=== PATIENT | female | born 1945 | race Caucasian/White ===

== ENCOUNTER 2024-04-14 09:45 | Outpatient (RCR) | payer OTHER, SELFPAY ==
--- NOTE | 2024-03-09 16:00 | PT.OIE ---
Current Diagnoses Lymphedema, not elsewhere classified (03/09/24) Localized edema (03/09/24) Visit Care Team Role Provider Type Dana Carter MD Attending Provider Non-Staff Family Provider Primary Care Provider Referring Provider Specialty: Medical Address: [address] [place] [address], [phone] Email: Physical Therapy Initial Evaluation PT-OP-A Visit Information Start: 03/08/24 16:53 Freq: Status: Active Protocol: Document 03/09/24 12:59 SAK (Rec: 03/09/24 14:32 [facility] [id number]) Out-Patient Physical Therapy Visit Information Visit Information Visit Type Initial Evaluation Visit Start Time 12:59 Visit Stop Time 14:25 Visit Number 1 Evaluation Information Evaluation Date 03/09/24 Precautions Precautions DM, osteopenia PT-OP-B Current Condition Start: 03/08/24 16:53 Freq: Status: Active Protocol: Document 03/09/24 12:59 SAK (Rec: 03/09/24 14:32 [facility] [id number]) Current Condition History of Current Condition Onset Date June 2023 Current Complaints left LE edema History of Current Condition 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 Now diabetic as result and has had swelling in left foot since the surgery and looks black and blue when dependent. At night swelling goes down most of the way and color is better. tried compression socks, didn' t work well, knee swelled, got diabetic socks but don't help with swelling. Not sure if has swelling in leg above foot and ankle Prior Treatments and Tests ultrasound; negative for clot Future Testing and Treatments Planned has appointment tomorrow with neurologist due to tremors, then with GP on ( Leila Carter) for follow up. Treatment Goals Patient/Caregiver Goals Decrease lymphedema and be able to self manage. Prior Functional Status Baseline Function- ADL's Independent Baseline Function- Mobility Independent PT-OP-C Subjective Start: 03/08/24 16:53 Freq: Status: Active Protocol: Document 03/09/24 12:59 SAK (Rec: 03/09/24 15:57 SAK [id number]) Patient Questionnaires Lymphedema Life Impact Score Lymphedema Score 12 OP-PT Pain Assessment Pain Assessment Grid Paper Pain Assessment Grid Completed Yes PT-OP-G Mobility & Gait Start: 03/08/24 16:53 Freq: Status: Active Protocol: Document 03/09/24 12:59 [facility] (Rec: 03/09/24 15:57 [facility] [id number]) OP Gait Assessment Gait Gait Assistance Required: Independent PT-OP-J Posture/Palpation/Skin Start: 03/08/24 16:53 Freq: Status: Active Protocol: Document 03/09/24 12:59 SAK (Rec: 03/09/24 15:57 [facility] [id number]) Palpation Assessment Location left LE Palpation Findings Edema Palpation Details fullness noted in left LE toes midfoot to proximal thigh PT-OP-K Range of Motion Start: 03/08/24 16:53 Freq: Status: Active Protocol: Document 03/09/24 12:59 [facility] (Rec: 03/09/24 15:57 [facility] [id number]) Hip Goniometric Range of Motion Hip shellie Hip ROM WFL Yes Knee Goniometric Range of Motion Knee shellie Knee ROM WFL Yes Ankle and Foot Goniometric Range of Motion Ankle and Foot shellie Ankle/Foot ROM WFL Yes PT-OP-N Lymphedema Start: 03/08/24 16:53 Freq: Status: Active Protocol: Document 03/09/24 12:59 [facility] (Rec: 03/09/24 14:32 [facility] [id number]) Lymphedema Measurements Lower Extremity Circumference Measurements Left Affected MT Heads 21 cm Mid-foot 21.3 cm Medial Malleolus 22.6 cm 10 cm From Medial Malleolus 26.2 cm 20 cm From Medial Malleolus 32.3 cm 30 cm From Medial Malleolus 30.6 cm 40 cm From Medial Malleolus 34.4 cm 50 cm From Medial Malleolus 40.8 cm 60 cm From Medial Malleolus 44.2 cm 70 cm From Medial Malleolus 50.5 cm Knee Joint 32.9 cm Right Unaffected MT Heads 20.8 cm Mid-foot 20.4 cm Medial Malleolus 22.6 cm 10 cm From Medial Malleolus 24.2 cm 20 cm From Medial Malleolus 30.7 cm 30 cm From Medial Malleolus 30.9 cm 40 cm From Medial Malleolus 33 cm 50 cm From Medial Malleolus 39.8 cm 60 cm From Medial Malleolus 43.8 cm 70 cm From Medial Malleolus 48 cm Knee Joint 32.7 cm PT-OP-Q Treatments Start: 03/08/24 16:53 Freq: Status: Active Protocol: Document 03/09/24 12:59 [facility] (Rec: 03/09/24 16:00 [facility] [id number]) Lymphedema Treatment Manual Lymphatic Drainage Duration 20 Comments with patient education verbally and with video Lymphedema Wrapping Other assisted patient in donning thigh high compression stocking left LE size II Juzo open toe with silicon at top Sequential Lymphedema Exercises Location instrsucted and issued handout Compression Garment Assessment Compression Garment Assessment Details loaner stocking Patient Education Lymphedema Pathology instructed Lymphedema Precautions instructed and issued handout Compression Garments discussed and issued loaner garment Self Manual Lymphatic Drainage instructed Sequential Lymphedema Exercises instructed PT-OP-T Assessment and Plan Start: 03/08/24 16:53 Freq: Status: Active Protocol: Document 03/09/24 12:59 [facility] (Rec: 03/09/24 14:32 [facility] [id number]) Physical Therapy Assessment Impairments Impairments Edema Goals 2 Impairment Lymphedema Life impact scale 12% Machine Greaser Goal (LTG) Decrease lymphedema life impact scale to no greater than 5/10 as measure of improved patient knowledge and function LTG Duration 05/10/24 1 Impairment lymphedema left LE Short Term Goal (STG) Patient to be instructed in all aspects of lymphedema care including skin care, elevation, manual lymphatic drainage, compression, and lymphedema exercises STG Duration 04/09/24 Machine Greaser Goal (LTG) Decrease lymphedema to a stable level (no increase or decrease in circumferential measurements more than 1 cm over the course of 1 week with patient to be independent and compliant with all aspects of self care for lymphedema including obtaining appropriate compression garment with demonstrated ability to don and doff. LTG Duration 05/10/24 Assessment Summary Assessment Patient presents to PT with lymphedema left LE foot to thigh stage I s/p extensive abdominal surgery. Patient will benefit from PT for lymphedema management to include skin care, elevation, manual lymphatic drainage, compression, and exercise with patient instruction for self management. Patient was issued a loaner Juzo size II 20-30 mm Hg thigh high stocking for trial due to good fit. PT initiated patient education for all aspects of lymphedema management. POC was discussed and she was in agreement. Physical Therapy Plan Frequency and Duration Frequency of Treatment 20 visits Duration of treatment (weeks) 12 Plan of Care Start Date 03/09/24 Plan of Care End Date 06/09/24 Therapeutic Interventions Therapeutic Interventions Lymphedema Management,Manual Therapy,Patient/Caregiver Education,Self-Care/Home Management,Taping,Therapeutic Exercises Modalities Vasopneumatic Devices Next Visit Focus/Plan Next Note Type Treatment Note Next Visit Plan Evaluate response to trial compression stocking, provide MLD with patient education, review lymphedema exercises, further discussion of compression garment options.
--- NOTE | 2024-03-09 16:00 | PT.OPPOC ---
Physical, Occupational & Speech Therapy At [facility] Current Diagnoses Lymphedema, not elsewhere classified (03/09/24) Localized edema (03/09/24) Visit Care Team Role Provider Type Dana Carter MD Attending Provider Non-Staff Family Provider Primary Care Provider Referring Provider Specialty: Medical Address: [address] [place] [address], [phone] Email: Plan Of Care PT-OP-B Current Condition Start: 03/08/24 16:53 Freq: Status: Active Protocol: Document 03/09/24 12:59 SAK (Rec: 03/09/24 14:32 SAK [id number]) Current Condition History of Current Condition Onset Date June 2023 Current Complaints left LE edema History of Current Condition 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 Now diabetic as result and has had swelling in left foot since the surgery and looks black and blue when dependent. At night swelling goes down most of the way and color is better. tried compression socks, didn' t work well, knee swelled, got diabetic socks but don't help with swelling. Not sure if has swelling in leg above foot and ankle Prior Treatments and Tests ultrasound; negative for clot Future Testing and Treatments Planned has appointment tomorrow with neurologist due to tremors, then with GP on ( Leila Carter) for follow up. Treatment Goals Patient/Caregiver Goals Decrease lymphedema and be able to self manage. Prior Functional Status Baseline Function- ADL's Independent Baseline Function- Mobility Independent PT-OP-T Assessment and Plan Start: 03/08/24 16:53 Freq: Status: Active Protocol: Document 03/09/24 12:59 SAK (Rec: 03/09/24 14:32 SAK [id number]) Physical Therapy Assessment Impairments Impairments Edema Goals 2 Impairment Lymphedema Life impact scale 12% Knuckle Strap Sewer Goal (LTG) Decrease lymphedema life impact scale to no greater than 5/10 as measure of improved patient knowledge and function LTG Duration 05/10/24 1 Impairment lymphedema left LE Short Term Goal (STG) Patient to be instructed in all aspects of lymphedema care including skin care, elevation, manual lymphatic drainage, compression, and lymphedema exercises STG Duration 04/09/24 [facility] Goal (LTG) Decrease lymphedema to a stable level (no increase or decrease in circumferential measurements more than 1 cm over the course of 1 week with patient to be independent and compliant with all aspects of self care for lymphedema including obtaining appropriate compression garment with demonstrated ability to don and doff. LTG Duration 05/10/24 Assessment Summary Assessment Patient presents to PT with lymphedema left LE foot to thigh stage I s/p extensive abdominal surgery. Patient will benefit from PT for lymphedema management to include skin care, elevation, manual lymphatic drainage, compression, and exercise with patient instruction for self management. Patient was issued a loaner Juzo size II 20-30 mm Hg thigh high stocking for trial due to good fit. PT initiated patient education for all aspects of lymphedema management. POC was discussed and she was in agreement. Physical Therapy Plan Frequency and Duration Frequency of Treatment 20 visits Duration of treatment (weeks) 12 Plan of Care Start Date 03/09/24 Plan of Care End Date 06/09/24 Therapeutic Interventions Therapeutic Interventions Lymphedema Management,Manual Therapy,Patient/Caregiver Education,Self-Care/Home Management,Taping,Therapeutic Exercises Modalities Vasopneumatic Devices Next Visit Focus/Plan Next Note Type Treatment Note Next Visit Plan Evaluate response to trial compression stocking, provide MLD with patient education, review lymphedema exercises, further discussion of compression garment options. Plan of Care Dates Plan of Care Start Date 03/09/24 Plan of Care End Date 06/09/24 Electronically Signed by: Aretha Vargas, PT 03/09/24 1600 If you are in agreement with this Plan of Care, please return a signed and dated copy. I have reviewed this Plan of Care and certify that the skilled therapy services above are required to meet the patient?s needs. Physician Signature Date Printed Name and Credentials Clinical Instructor Signature Printed Name and Credentials
--- NOTE | 2024-03-17 14:59 | PT.OTN ---
Current Diagnoses Lymphedema, not elsewhere classified (03/17/24) Localized edema (03/17/24) Physical Therapy Treatment Note PT-OP-A Visit Information Start: 03/08/24 16:53 Freq: Status: Active Protocol: Document 03/17/24 13:48 SAK (Rec: 03/17/24 14:01 [facility] [id number]) Out-Patient Physical Therapy Visit Information Visit Information Visit Type Treatment Note Visit Start Time 13:48 Visit Number 2 Evaluation Information Evaluation Date 03/09/24 Precautions Precautions DM, osteopenia PT-OP-B Current Condition Start: 03/08/24 16:53 Freq: Status: Active Protocol: Document 03/17/24 13:48 SAK (Rec: 03/17/24 14:01 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 Now diabetic as result and has had swelling in left foot since the surgery and looks black and blue when dependent. At night swelling goes down most of the way and color is better. tried compression socks, didn' t work well, knee swelled, got diabetic socks but don't help with swelling. Not sure if has swelling in leg above foot and ankle Prior Treatments and Tests ultrasound; negative for clot Future Testing and Treatments Planned has appointment tomorrow with neurologist due to tremors, then with GP on ( Leila Carter) for follow up. PT-OP-C Subjective Start: 03/08/24 16:53 Freq: Status: Active Protocol: Document 03/17/24 13:48 SAK (Rec: 03/17/24 14:01 [facility] [id number]) OP-PT Subjective Patient Comments Patient Comments Reports she feels good progress with wearing compression stocking. PT-OP-G Mobility & Gait Start: 03/08/24 16:53 Freq: Status: Active Protocol: Document 03/09/24 12:59 SAK (Rec: 03/09/24 15:57 [facility] [id number]) OP Gait Assessment Gait Gait Assistance Required: Independent PT-OP-J Posture/Palpation/Skin Start: 03/08/24 16:53 Freq: Status: Active Protocol: Document 03/09/24 12:59 SAK (Rec: 03/09/24 15:57 [facility] [id number]) Palpation Assessment Location left LE Palpation Findings Edema Palpation Details fullness noted in left LE toes midfoot to proximal thigh PT-OP-K Range of Motion Start: 03/08/24 16:53 Freq: Status: Active Protocol: Document 03/09/24 12:59 [facility] (Rec: 03/09/24 15:57 [facility] [id number]) Hip Goniometric Range of Motion Hip shellie Hip ROM WFL Yes Knee Goniometric Range of Motion Knee shellie Knee ROM WFL Yes Ankle and Foot Goniometric Range of Motion Ankle and Foot shellie Ankle/Foot ROM WFL Yes PT-OP-N Lymphedema Start: 03/08/24 16:53 Freq: Status: Active Protocol: Document 03/17/24 13:48 [facility] (Rec: 03/17/24 14:09 [facility] [id number]) Lymphedema Measurements Lower Extremity Circumference Measurements Left Affected MT Heads 19.8 cm Mid-foot 20.4 cm Medial Malleolus 21.4 cm 10 cm From Medial Malleolus 23.2 cm 20 cm From Medial Malleolus 30.8 cm 30 cm From Medial Malleolus 30.6 cm 40 cm From Medial Malleolus 32.4 cm 50 cm From Medial Malleolus 39.3 cm 60 cm From Medial Malleolus 44.8 cm 70 cm From Medial Malleolus 48.1 cm Knee Joint 31.6 cm PT-OP-Q Treatments Start: 03/08/24 16:53 Freq: Status: Active Protocol: Document 03/17/24 13:48 [facility] (Rec: 03/17/24 14:53 [facility] [id number]) Lymphedema Treatment Manual Lymphatic Drainage Duration 20 Comments with patient review technique Lymphedema Wrapping Other reviewed donning technique including use of video, issued piece of Dycem to help, and shown option of donning aid Sequential Lymphedema Exercises Location reviewed Compression Garment Assessment Compression Garment Assessment Details good fit and respnse to Juzo Size II 20-30 mm Hg compression stocking, will keep as loaner until obtains her own. Patient Education Lymphedema Pathology reviewed Compression Garments good fit, recommend order same type and size Self Manual Lymphatic Drainage reviewed; patient demonstrated good understanding Sequential Lymphedema Exercises reviewed Other reviewed donning and doffing, issued Dycem to improve ease of donning and smoothing fabric, and shown 1 option for donning. Further problem solving as needed. PT-OP-T Assessment and Plan Start: 03/08/24 16:53 Freq: Status: Active Protocol: Document 03/17/24 13:48 [facility] (Rec: 03/17/24 14:01 SAK [id number]) Physical Therapy Assessment Impairments Impairments Edema Goals 2 Impairment Lymphedema Life impact scale 12% [facility] Goal (LTG) Decrease lymphedema life impact scale to no greater than 5/10 as measure of improved patient knowledge and function LTG Duration 05/10/24 1 Impairment lymphedema left LE Short Term Goal (STG) Patient to be instructed in all aspects of lymphedema care including skin care, elevation, manual lymphatic drainage, compression, and lymphedema exercises STG Duration 04/09/24 Knitting Machine Fixer Goal (LTG) Decrease lymphedema to a stable level (no increase or decrease in circumferential measurements more than 1 cm over the course of 1 week with patient to be independent and compliant with all aspects of self care for lymphedema including obtaining appropriate compression garment with demonstrated ability to don and doff. LTG Duration 05/10/24 Assessment Summary Assessment Patient circumferential measurements decreased throughout left LE significantly (see measurements) except just inf knee measurement exact same, and proximal thigh measurement increased. Good fit and response to wearing Juzo Size II 20-30 mm Hg compression garment (thigh high with silicone at top). Recommend she make an appointment with a fitter to have compression garments ordered. Physical Therapy Plan Frequency and Duration Frequency of Treatment 20 visits Duration of treatment (weeks) 12 Plan of Care Start Date 03/09/24 Plan of Care End Date 06/09/24 Therapeutic Interventions Therapeutic Interventions Lymphedema Management,Manual Therapy,Patient/Caregiver Education,Self-Care/Home Management,Taping,Therapeutic Exercises Modalities Vasopneumatic Devices Next Visit Focus/Plan Next Note Type Treatment Note Next Visit Plan Have patient do return demo MLD. Further problem solve donning and doffing compression as needed.
--- NOTE | 2024-03-22 13:07 | PT-OP ANOTE ---
cancelled due to diarrhea.
--- NOTE | 2024-03-24 09:01 | PT.OTN ---
Current Diagnoses Lymphedema, not elsewhere classified (03/24/24) Localized edema (03/24/24) Physical Therapy Treatment Note PT-OP-A Visit Information Start: 03/08/24 16:53 Freq: Status: Active Protocol: Document 03/24/24 08:11 SAK (Rec: 03/24/24 08:31 [facility] [id number]) Out-Patient Physical Therapy Visit Information Visit Information Visit Type Treatment Note Visit Start Time 08:11 Visit Number 3 Evaluation Information Evaluation Date 03/09/24 Precautions Precautions DM, osteopenia PT-OP-B Current Condition Start: 03/08/24 16:53 Freq: Status: Active Protocol: Document 03/24/24 08:11 SAK (Rec: 03/24/24 08:31 [facility] [id number]) Current Condition History of Current Condition Onset Date June 2023 Current Complaints left LE edema History of Current Condition 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 Now diabetic as result and has had swelling in left foot since the surgery and looks black and blue when dependent. At night swelling goes down most of the way and color is better. tried compression socks, didn' t work well, knee swelled, got diabetic socks but don't help with swelling. Not sure if has swelling in leg above foot and ankle Prior Treatments and Tests ultrasound; negative for clot Future Testing and Treatments Planned has appointment tomorrow with neurologist due to tremors, then with GP on ( Leila Carter) for follow up. PT-OP-C Subjective Start: 03/08/24 16:53 Freq: Status: Active Protocol: Document 03/24/24 08:11 SAK (Rec: 03/24/24 08:31 [facility] [id number]) OP-PT Subjective Patient Comments Patient Comments Hasn't gotten compression stocking yet, has been wearing loaner. Was ill with diarrhea and forgot. PT-OP-G Mobility & Gait Start: 03/08/24 16:53 Freq: Status: Active Protocol: Document 03/09/24 12:59 SAK (Rec: 03/09/24 15:57 [facility]AK [id number]) OP Gait Assessment Gait Gait Assistance Required: Independent PT-OP-J Posture/Palpation/Skin Start: 03/08/24 16:53 Freq: Status: Active Protocol: Document 03/09/24 12:59 SAK (Rec: 03/09/24 15:57 [facility] [id number]) Palpation Assessment Location left LE Palpation Findings Edema Palpation Details fullness noted in left LE toes midfoot to proximal thigh PT-OP-K Range of Motion Start: 03/08/24 16:53 Freq: Status: Active Protocol: Document 03/09/24 12:59 [facility] (Rec: 03/09/24 15:57 [facility] [id number]) Hip Goniometric Range of Motion Hip shellie Hip ROM WFL Yes Knee Goniometric Range of Motion Knee shellie Knee ROM WFL Yes Ankle and Foot Goniometric Range of Motion Ankle and Foot shellie Ankle/Foot ROM WFL Yes PT-OP-N Lymphedema Start: 03/08/24 16:53 Freq: Status: Active Protocol: Document 03/24/24 08:11 [facility] (Rec: 03/24/24 08:31 [facility] [id number]) Lymphedema Measurements Lower Extremity Circumference Measurements Left Affected MT Heads 20 cm Mid-foot 21.3 cm Medial Malleolus 22.8 cm 10 cm From Medial Malleolus 24.7 cm 20 cm From Medial Malleolus 31.2 cm 30 cm From Medial Malleolus 29.2 cm 40 cm From Medial Malleolus 31.5 cm 50 cm From Medial Malleolus 40 cm 60 cm From Medial Malleolus 44.2 cm 70 cm From Medial Malleolus 48 cm Knee Joint 31.7 cm PT-OP-Q Treatments Start: 03/08/24 16:53 Freq: Status: Active Protocol: Document 03/24/24 08:57 [facility] (Rec: 03/24/24 09:00 [facility] [id number]) Lymphedema Treatment Manual Lymphatic Drainage Duration 30 Comments patient return demo Lymphedema Wrapping Other patient wearing loaner Juzo Size II thigh high 20-30 mm Hg with good results, will order through [facility] today Patient Education Compression Garments good fit, recommend order same type and size Self Manual Lymphatic Drainage patient return demo today, indep PT-OP-T Assessment and Plan Start: 03/08/24 16:53 Freq: Status: Active Protocol: Document 03/24/24 08:11 [facility] (Rec: 03/24/24 08:31 [facility] [id number]) Physical Therapy Assessment Goals 2 Impairment Lymphedema Life impact scale 12% [facility] Goal (LTG) Decrease lymphedema life impact scale to no greater than 5/10 as measure of improved patient knowledge and function LTG Duration 05/10/24 1 Impairment lymphedema left LE Short Term Goal (STG) Patient to be instructed in all aspects of lymphedema care including skin care, elevation, manual lymphatic drainage, compression, and lymphedema exercises STG Duration 04/09/24 [facility] Goal (LTG) Decrease lymphedema to a stable level (no increase or decrease in circumferential measurements more than 1 cm over the course of 1 week with patient to be independent and compliant with all aspects of self care for lymphedema including obtaining appropriate compression garment with demonstrated ability to don and doff. LTG Duration 05/10/24 Assessment Summary Assessment Patient has called [facility] for appointment. Circumferential measurements stable. Ready for obtaining own compression stocking, then anticipate 1 further PT visit. Physical Therapy Plan Frequency and Duration Frequency of Treatment 20 visits Duration of treatment (weeks) 12 Plan of Care Start Date 03/09/24 Plan of Care End Date 06/09/24 Therapeutic Interventions Therapeutic Interventions Lymphedema Management,Manual Therapy,Patient/Caregiver Education,Self-Care/Home Management,Taping,Therapeutic Exercises Modalities Vasopneumatic Devices Next Visit Focus/Plan Next Note Type Treatment Note Next Visit Plan 1 further treatment to assess fit of compression stocking, problem solve any further issues.
--- NOTE | 2024-04-14 16:47 | PT.OTN ---
Current Diagnoses Lymphedema, not elsewhere classified (04/14/24) Localized edema (04/14/24) Physical Therapy Treatment Note PT-OP-A Visit Information Start: 03/08/24 16:53 Freq: Status: Active Protocol: Document 04/14/24 09:49 SAK (Rec: 04/14/24 10:27 [facility] [id number]) Out-Patient Physical Therapy Visit Information Visit Information Visit Type Treatment Note Visit Start Time 09:49 Visit Number 4 Evaluation Information Evaluation Date 03/09/24 Precautions Precautions DM, osteopenia PT-OP-B Current Condition Start: 03/08/24 16:53 Freq: Status: Active Protocol: Document 04/14/24 09:49 SAK (Rec: 04/14/24 10:27 [facility] [id number]) Current Condition History of Current Condition Onset Date June 2023 Current Complaints left LE edema History of Current Condition 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 Now diabetic as result and has had swelling in left foot since the surgery and looks black and blue when dependent. At night swelling goes down most of the way and color is better. tried compression socks, didn' t work well, knee swelled, got diabetic socks but don't help with swelling. Not sure if has swelling in leg above foot and ankle Prior Treatments and Tests ultrasound; negative for clot Future Testing and Treatments Planned has appointment tomorrow with neurologist due to tremors, then with GP on ( Leila Carter) for follow up. PT-OP-C Subjective Start: 03/08/24 16:53 Freq: Status: Active Protocol: Document 04/14/24 09:49 SAK (Rec: 04/14/24 10:27 [facility] [id number]) OP-PT Subjective Patient Comments Patient Comments I think my leg is doing well, has ordered compression stockings still waiting to hear back but leg doing well, ready for discharge. PT-OP-G Mobility & Gait Start: 03/08/24 16:53 Freq: Status: Active Protocol: Document 03/09/24 12:59 SAK (Rec: 03/09/24 15:57 [facility] [id number]) OP Gait Assessment Gait Gait Assistance Required: Independent PT-OP-J Posture/Palpation/Skin Start: 03/08/24 16:53 Freq: Status: Active Protocol: Document 03/09/24 12:59 SAK (Rec: 03/09/24 15:57 [facility] [id number]) Palpation Assessment Location left LE Palpation Findings Edema Palpation Details fullness noted in left LE toes midfoot to proximal thigh PT-OP-K Range of Motion Start: 03/08/24 16:53 Freq: Status: Active Protocol: Document 03/09/24 12:59 [facility] (Rec: 03/09/24 15:57 [facility] [id number]) Hip Goniometric Range of Motion Hip shellie Hip ROM WFL Yes Knee Goniometric Range of Motion Knee shellie Knee ROM WFL Yes Ankle and Foot Goniometric Range of Motion Ankle and Foot shellie Ankle/Foot ROM WFL Yes PT-OP-N Lymphedema Start: 03/08/24 16:53 Freq: Status: Active Protocol: Document 04/14/24 09:49 [facility] (Rec: 04/14/24 10:27 [facility] [id number]) Lymphedema Measurements Lower Extremity Circumference Measurements Left Affected MT Heads 20.7 cm Mid-foot 21 cm Medial Malleolus 21.5 cm 10 cm From Medial Malleolus 23.7 cm 20 cm From Medial Malleolus 30.7 cm 30 cm From Medial Malleolus 29.4 cm 40 cm From Medial Malleolus 32.8 cm 50 cm From Medial Malleolus 40.8 cm 60 cm From Medial Malleolus 45.2 cm 70 cm From Medial Malleolus 48.8 cm Knee Joint 31.5 cm PT-OP-Q Treatments Start: 03/08/24 16:53 Freq: Status: Active Protocol: Document 04/14/24 09:49 [facility] (Rec: 04/14/24 16:47 [facility] [id number]) Lymphedema Treatment Manual Lymphatic Drainage Duration 30 Comments review technique with patient Lymphedema Wrapping Other patient wearing loaner Juzo Size II thigh high 20-30 mm Hg with good results, has ordered same through [facility] Compression Garment Assessment Compression Garment Assessment Details good fit and respnse to Juzo Size II 20-30 mm Hg compression stocking, will keep as loaner until obtains her own. PT-OP-T Assessment and Plan Start: 03/08/24 16:53 Freq: Status: Active Protocol: Document 04/14/24 09:49 [facility] (Rec: 04/14/24 10:27 [facility] [id number]) Physical Therapy Assessment Goals 2 Impairment Lymphedema Life impact scale 12% Lens Assistant Goal (LTG) Decrease lymphedema life impact scale to no greater than 5/10 as measure of improved patient knowledge and function LTG Duration goal met 1 Impairment lymphedema left LE Short Term Goal (STG) Patient to be instructed in all aspects of lymphedema care including skin care, elevation, manual lymphatic drainage, compression, and lymphedema exercises STG Duration goal met Lens Assistant Goal (LTG) Decrease lymphedema to a stable level (no increase or decrease in circumferential measurements more than 1 cm over the course of 1 week with patient to be independent and compliant with all aspects of self care for lymphedema including obtaining appropriate compression garment with demonstrated ability to don and doff. LTG Duration goal met except compression stocking Progress Towards Goals Progress Towards Goals Goals Met Assessment Summary Assessment all PT goals met except hasn't received compression stockings yet, has continued to use loaner stocking. Patient called back after session today to report hers have been ordered and she should receive soon. Agreeable to discharge from PT today. Will follow up with [facility] regarding compression stockings. Physical Therapy Plan Discharge Physical Therapy Discharge Reasons Goals Met
== END 2024-07-07 14:46 | disposition home or self-care (01) ==
LOC: PHYS 09:45
PROVIDERS: Family Provider Internal Medicine Geriatric Medicine; PCP Internal Medicine Geriatric Medicine; Referring Provider Internal Medicine Geriatric Medicine; Visit Provider Internal Medicine Geriatric Medicine
DX: R60.0 Localized edema (principal); I89.0 Lymphedema, not elsewhere classified
CPT/HCPCS: 97140; 97162; 97535